=== PATIENT | female | born 1975 | race Caucasian/White ===

== ENCOUNTER 2016-09-28 08:41 | Emergency (ER) | payer OTHER ==
[2016-09-28 08:52] VITALS: BP 91/63
--- NOTE | 2016-09-28 10:46 | UC ---
Throat Pain/Nasal [place] HPI - HPI Summary HPI Summary: 41 y/o female presents to the urgent care c/o sore throat with fever since yesterday. She reports painful an swollen lymph node of her neck which makes it difficult to swallow. Her children have similar symptoms. She has taken ibuprofen OTC to alleviate pain and fever and GROSSMAN. Pt denies SOB, cough, chest pain, N/V/D - History of Current Complaint Chief Complaint: UCGeneralIllness Stated Complaint: THROAT PAIN FEVER Time Seen by Provider: 09/28/16 10:33 Hx Obtained From: Patient Hx Last Menstrual Period: 09/02/16 ?: No Onset/Duration: Gradual Onset, Lasting Days, Still Present Severity: Moderate Pain Intensity: 5 Pain Scale Used: 0-10 Numeric Cough: None Associated Signs & Symptoms: Positive: Dysphagia, Fever. Negative: Hoarseness, Sinus Discomfort, Nasal Discharge, Vomiting, Rash - Epiglottits Risk Factors Epiglottis Risk Factors: Negative - Allergies/Home Medications Allergies/Adverse Reactions: Allergies Allergy/AdvReac Type Severity Reaction Status Date / Time No Known Allergies Allergy Verified 03/02/14 06:53 Home Medications: Home Medications Ibuprofen [Advil] 09/28/16 [History] PMH/Surg Hx/FS Hx/Imm Hx Previously Healthy: Yes - Surgical History Surgical History: Yes Surgery Procedure, Year, and Place: 2006 [facility]. 2012 [facility] - Family History Known Family History: Positive: None - Social History Occupation: Employed Full-time Lives: With Family Alcohol Use: None Substance Use Type: None Smoking Status (MU): Never Smoked Tobacco Have You Smoked in the Last Year: No - Immunization History Most Recent Influenza Vaccination: 02/25 Most Recent Tetanus Shot: does not remember Most Recent Pneumonia Vaccination: none Review of Systems Constitutional: Fever Skin: Negative Eyes: Negative ENT: Sore Throat Respiratory: Negative Cardiovascular: Negative Gastrointestinal: Negative Genitourinary: Negative Motor: Negative Neurovascular: Negative Musculoskeletal: Negative Neurological: Negative Psychological: Negative All Other Systems Reviewed And Are Negative: Yes Physical Exam Triage Information Reviewed: Yes Appearance: Well-Appearing, No Pain Distress, Well-Nourished, Thin Vital Signs: Initial Vital Signs Temp 97.8 F 09/28/16 08:49 Pulse 81 09/28/16 08:49 Resp 16 09/28/16 08:49 BP 91/63 09/28/16 08:49 Pulse Ox 100 09/28/16 08:49 Vital Signs Reviewed: Yes Eye Exam: Normal Eyes: Positive: Conjunctiva Clear - PERRLA, EOMI, fundi grossly normal. ENT: Positive: Normal ENT inspection, Hearing grossly normal, Pharyngeal erythema - with positive exudate., TMs normal - B/L ear canals normal, Tonsillar swelling - B/L, Tonsillar exudate Dental Exam: Normal Neck: Positive: Supple, Tenderness @ - Left side swollen and tender cervical lymphnode Respiratory Exam: Normal Respiratory: Positive: Chest non-tender, Lungs clear, Normal breath sounds Cardiovascular Exam: Normal Cardiovascular: Positive: RRR, No Murmur Abdominal Exam: Normal Abdomen Description: Positive: Nontender, No Organomegaly, Soft Bowel Sounds: Positive: Present Musculoskeletal Exam: Normal Musculoskeletal: Positive: Strength Intact, ROM Intact, No Edema Neurological Exam: Normal Neurological: Positive: Alert, Muscle Tone Normal Psychological Exam: Normal Skin Exam: Normal Throat Pain/Nasal Course/Dx - Course Course Of Treatment: 41 y/o female with sore throat with fever and swollen lymphnode: Hx Obtained. PE abnormal findings: ENT: Positive: Normal ENT inspection, Hearing grossly normal, Pharyngeal erythema - with positive exudate. , TMs normal - B/L ear canals normal, Tonsillar swelling - B/L, Tonsillar exudate. Rapid strep ordered, Result: positive. Strep pharyngitis. Pt Rx Amoxicillin 875mg BID PO x 10 days. and advised to continue taking Ibuprofen OTC q6-8 hrs to alleviate symptoms. Finish full course of Antibiotic to avoid recurrence or resistance. Increase fluid intake and rest. and if symptoms do not improve to return to the urgent care or f/u with her PCP for further evaluation and treatment. Pt understood and agreed. - Differential Dx/Diagnosis Differential Diagnosis/HQI/PQRI: Influenza, Laryngitis, Mononucleosis, Otitis Media, Pharyngitis, Tonsillitis, URI Provider Diagnoses: Strep pharyngitis Discharge - Discharge Plan Condition: Stable Disposition: HOME Prescriptions: Amoxicillin (*) [Amoxicillin 875 MG (*)] 875 mg PO BID #20 tab Patient Education Materials: Strep Throat (ED) Referrals: Concha Stewart MD [Primary Care Provider] - Additional Instructions: Please take medications as instructed and finish the full course of treatment to avoid recurrent infection. Increase fluid intake, encourage hand washing and continue taking the Ibuprofen OTC q6-8hrs prn. If you do not improve or if symptoms worsen after the course of antibiotics, you should either follow up with your PCP or return to the urgent care for further evaluation and treatment.
== END 2016-09-28 11:06 | disposition home or self-care (01) ==
LOC: UCEAST 08:41
DX: J02.0 Streptococcal pharyngitis (principal); R50.9 Fever, unspecified
CPT/HCPCS: 87651; 99212; G0463

== ENCOUNTER 2017-07-26 15:43 | Emergency (ER) | payer OTHER ==
--- NOTE | 2017-07-26 16:50 | RAD ---
INDICATION: Left ankle pain after rolling injury COMPARISON: None. TECHNIQUE: 3 views of the left ankle were obtained. FINDINGS: The well corticated bones exhibit normal alignment. Joint spaces appear maintained. No fracture is seen. IMPRESSION: Normal ankle radiograph. If the patient's symptoms persist, follow-up imaging is recommended.
--- NOTE | 2017-07-26 17:21 | ED ---
Lower Extremity - HPI Summary HPI Summary: 42F presents with left ankle pain today. She states she stepped off her porch and twisted her ankle. She inverted her ankle. She denies any previous injury to the area. She denies any numbness or tingling. She has not been able to place weight on area since. She denies any knee pain. She denies any other injury. She has not taking anything for pain. Pain is worse when she ambulates. - History of Current Complaint Chief Complaint: EDExtremityLower Stated Complaint: LT ANKLE INJURY Time Seen by Provider: 07/26/17 16:53 Hx Last Menstrual Period: 09/02/16 Pain Intensity: 5 - Allergies/Home Medications Allergies/Adverse Reactions: Allergies Allergy/AdvReac Type Severity Reaction Status Date / Time No Known Allergies Allergy Verified 07/26/17 15:48 PMH/Surg Hx/FS Hx/Imm Hx Endocrine/Hematology History: Reports: Hx Anemia - A LITTLE ANEMIC Cardiovascular History: Denies: Hx Myocardial Infarction Sensory History: Denies: Hx Contacts or Glasses, Hx Hearing Aid Opthamlomology History: Denies: Hx Contacts or Glasses Neurological History: Reports: Hx Migraine - NOT IN 5 YRS - Surgical History Surgery Procedure, Year, and Place: 2006 [facility]. 2013 [facility] Hx Anesthesia Reactions: No Infectious Disease History: No Infectious Disease History: Reports: Hx Hepatitis - Hep B 1989 Denies: Hx Clostridium Difficile, Hx Human Immunodeficiency Virus (HIV), Hx of Known/Suspected MRSA, Hx Shingles, Hx Tuberculosis, Hx Known/Suspected VRE, Hx Known/Suspected VRSA, History Other Infectious Disease, Traveled Outside the [place] in Last 30 Days - Family History Known Family History: Positive: None - Social History Alcohol Use: None Substance Use Type: Reports: None Smoking Status (MU): Never Smoked Tobacco Have You Smoked in the Last Year: No Review of Systems Negative: Fever Negative: Chest Pain Negative: Shortness Of Breath Positive: Myalgia - left ankle All Other Systems Reviewed And Are Negative: Yes Physical Exam Triage Information Reviewed: Yes Vital Signs On Initial Exam: Initial Vitals Temp Pulse Resp BP Pulse Ox 98.3 F 76 14 104/70 100 07/26/17 15:47 07/26/17 15:47 07/26/17 15:47 07/26/17 15:47 07/26/17 15:47 Vital Signs Reviewed: Yes Appearance: Positive: Well-Appearing Skin: Positive: Warm, Dry Head/Face: Positive: Normal Head/Face Inspection Eyes: Positive: Normal, Conjunctiva Clear Respiratory/Lung Sounds: Positive: Clear to Auscultation, Breath Sounds Present Cardiovascular: Positive: Normal, RRR Musculoskeletal: Positive: Strength/ROM Intact - Left knee with pain, Edema Left - lateral malleolus, Other - Tenderness over the left lateral malleolus, good pulses, capillary refill less than 2 seconds, sensation grossly intact Neurological: Positive: Normal Psychiatric: Positive: Normal Diagnostics - Vital Signs Vital Signs Temp Pulse Resp BP Pulse Ox 07/26/17 15:47 98.3 F 76 14 104/70 100 - Laboratory Lab Statement: Any lab studies that have been ordered have been reviewed, and results considered in the medical decision making process. - Radiology ankle Xray Interpretation: No Acute Changes Radiology Interpretation Completed By: Radiologist Lower Extremity Course/Dx - Course Course Of Treatment: 42F presents with left ankle pain today. She states she stepped off her porch and twisted her ankle. She inverted her ankle. She denies any previous injury to the area. She denies any numbness or tingling. She has not been able to place weight on area since. She denies any knee pain. She denies any other injury. She has not taking anything for pain. Pain is worse when she ambulates. On exam swelling over left lateral malleolus, sensation grossly intact, good pulses, cap refill less than 2 seconds. X-ray shows no fracture. We'll treat as sprain with rice. Patient understands and agrees with agrees. - Diagnoses Differential Diagnosis/HQI/PQRI: Positive: Fracture (Closed), Sprain, Strain Provider Diagnoses: Left ankle injury Discharge - Sign-Out/Discharge Documenting (check all that apply): Discharge - Discharge Plan Condition: Good Disposition: HOME Patient Education Materials: Ankle Sprain (ED) Referrals: Concha Stewart MD [Primary Care Provider] - Additional Instructions: Stay off ankle as much as possible Ice, elevate, keep in NEGRO Ibuprofen every 6 hours for pain Follow up with primary if no improvement Return to ED if develop or any new or worsening symptoms - Billing Disposition and Condition Condition: GOOD Disposition: HOME
[2017-07-26 18:37] VITALS: BP 101/68
== END 2017-07-26 17:55 | disposition home or self-care (01) ==
LOC: ED 15:43
DX: S99.912A Unspecified injury of left ankle, initial encounter (principal); X50.1XXA Overexertion from prolonged static or awkward postures, initial encounter; Y92.89 Other specified places as the place of occurrence of the external cause
CPT/HCPCS: 99282